=== PATIENT | male | born 1990 | race African-American/Black ===

== ENCOUNTER 2021-03-06 15:56 | Emergency (ER) | payer BC ==
[~2021-03-06] VITALS: Ht 185.4 cm; Wt 141.0 kg
[2021-03-06] MEDS ORDERED: TORADOL PO (19:47)
[2021-03-06] MEDS ORDERED: FLEXERIL5 M1 PO (19:47)
[2021-03-06 19:54] VITALS: BP 138/72
== END 2021-03-06 20:05 | disposition home or self-care (01) | DRG 552 ==
LOC: ED 15:56
DX: M54.5 Low back pain (principal); M54.6 Pain in thoracic spine; X50.3XXA Overexertion from repetitive movements, initial encounter; Y93.89 Activity, other specified; Y92.89 Other specified places as the place of occurrence of the external cause; Y99.0 Civilian activity done for income or pay

== ENCOUNTER 2023-09-02 08:17 | Inpatient (IN) | payer BC ==
[2023-09-02] VITALS (45 sets, daily range): BP systolic 117–213; BP diastolic 66–135
[~2023-09-02] VITALS: Ht 185.4 cm; Wt 158.0 kg
[~2023-09-02 08:17] MED LIST: FLEXERIL5 M1 PO; TORADOL PO
--- NOTE | 2023-09-02 09:29 | NUR ---
PATIENT ARRIVED TO ER VIA POV. PATIENT WHEELED TO ROOM BY ER STAFF. PATIENT AWAKE, ALERT AND STABLE. NO DISTRESS NOTED. PHYSICIAN NOTIFIED.
--- NOTE | 2023-09-02 10:00 | NUR ---
PT SBAR REPORT RECEIVED FROM WILMER GOYAL;PT CARE ASSUMED AT THIS TIME
[2023-09-02 10:26] LABS: BASO% 0.1 % (0-3); HEMATOCRIT 49.7 % (39.0-50.0); HEMOGLOBIN 16.1 g/dl (14.0-18.0); IMMATURE GRANULOCYTES 0.4 % (0.0-5.0); MEAN CELL VOLUME 93.8 fL CALC (80.0-100.0); MEAN CORPUSCULAR HGB 30.4 pG CALC (26.0-32.0); MEAN CORPUSCULAR HGB CONC 32.4 g/dL CAL (32.0-36.0); MONO% 3.2 % (2-13); NEUT# 16.09 thou/uL (1.82-7.42); NEUT% 92.3 % (42-76); RED BLOOD COUNT 5.3 mill/uL (4.70-6.10); RED CELL DISTRI WIDTH 13.6 % (11.5-15.5)
[2023-09-02 10:31] LABS: ALKALINE PHOSPHATASE 158 u/l (38-126); BUN 21 mg/dL (9-20); BUN/CREATININE RATIO 15 (12-20 (CALC)); CHLORIDE 98 mmol/l (95-108); CREATININE 1.4 mg/dL (0.7-1.3); GFR FOR AFR.AMER. > 60 ML/MIN (>=60 (CALC)); GFR OTHER RACES 58 ML/MIN (>=60 (CALC)); SGOT/AST 38 u/l (17-59)
[2023-09-02 10:42] LABS: POTASSIUM 5.4 mmol/l (3.5-5.1); SODIUM 135 mmol/l (137-146)
[2023-09-02 10:43] LABS: ALBUMIN 5.3 g/dL (3.2-5.0); ANION GAP 36 (6-22 (CALC)); BILIRUBIN, TOTAL 0.7 mg/dL (0.2-1.3); CARBON DIOXIDE 6 mmol/l (22-30); TOTAL PROTEIN 9.1 g/dL (6.3-8.2)
[2023-09-02 10:54] LABS: INTERNATIONAL NORMALIZED RATIO 1.2 RATIO (0.7-1.3)
--- NOTE | 2023-09-02 12:22 | NUR ---
Reassessment of patient completed. No distress noted.
[2023-09-02 13:54] LABS: URINE BLOOD DIPSTICK Moderate (NEGATIVE); URINE GLUCOSE - DIPSTICK 500 mg/dL (NEGATIVE); URINE KETONE >=160 mg/dL (NEGATIVE); URINE LEUK ESTERASE Negative (NEGATIVE); URINE NITRITE - DIPSTICK Negative (Negative); URINE PROTEIN - DIPSTICK 100 mg/dL (NEG-TRACE); URINE UROBILINOGEN - DIPSTICK 0.2 E.U./dL (0.2)
[2023-09-02 13:55] LABS: URINE COLOR Yellow
--- NOTE | 2023-09-02 14:17 | NUR ---
PATIENT OFFERED EXTRA ICE AND WATER PER REQUEST.
[2023-09-02 14:19] LABS: URINE RBC 0-2 RBC/hpf (0-5); URINE SQUAMOUS EPITHELIAL CELL RARE EPI/hpf (0-FEW); URINE WBC 0-2 WBC/hpf (0-5)
--- NOTE | 2023-09-02 16:35 | NUR ---
PATIENT AWAITING ICU ROOM 4
[2023-09-02 18:17] LABS: ANION GAP 26 (6-22 (CALC)); BUN 19 mg/dL (9-20); BUN/CREATININE RATIO 22 (12-20 (CALC)); CHLORIDE 107 mmol/l (95-108); CREATININE 0.9 mg/dL (0.7-1.3); GFR FOR AFR.AMER. > 60 ML/MIN (>=60 (CALC)); GFR OTHER RACES > 60 ML/MIN (>=60 (CALC)); POTASSIUM 4.5 mmol/l (3.5-5.1); SODIUM 135 mmol/l (137-146)
[2023-09-02 18:32] LABS: CARBON DIOXIDE 7 mmol/l (22-30)
--- NOTE | 2023-09-02 19:34 | NUR ---
REPORT CALLED TO ICU
--- NOTE | 2023-09-02 19:58 | NUR ---
PATIENT TAKEN TO ICU
--- NOTE | 2023-09-02 20:00 | NUR ---
PATIENT ARRIVED ON UNIT VIA STRETCHER. HE AMBULATED TO BED WITH STEADY GAIT. NO ACUTE DISTRESS NOTED. HE HAS A BOIL IN THE COCCYX AREA THAT IS DRAINING PURULENT FLUID. ASSESSMENT COMPLETED. PATIENT IS A/O X3. LUNGS CTA. BOWEL SOUNDS ACTIVE IN ALL FOUT QUADS. PATIENT ARRIVED ON UNIT DUE TO DKA WITH INSULIN DRIP RUNNING AT 4 AT THIS TIME. HE DENIES ANY PAIN OR DISCOMFORT. BICARB DRIP STARETED. FLUIDS RUNNING PER DKA PROTOCOL.
[2023-09-03] VITALS (24 sets, daily range): BP systolic 92–185; BP diastolic 48–91
--- NOTE | 2023-09-03 02:00 | NUR ---
PATIENT REMAINS ON INSULIN DRIP, NO ACUTE DISTRESS NOTED. DRIP TITRATED PER PROTOCOL.
--- NOTE | 2023-09-03 02:23 | NUR ---
AWAITING 0000 LAB RESULTS.
[2023-09-03 02:35] LABS: ANION GAP 23 (6-22 (CALC)); BUN 22 mg/dL (9-20); BUN/CREATININE RATIO 23 (12-20 (CALC)); CHLORIDE 108 mmol/l (95-108); GFR FOR AFR.AMER. > 60 ML/MIN (>=60 (CALC)); GFR OTHER RACES > 60 ML/MIN (>=60 (CALC)); POTASSIUM 4.7 mmol/l (3.5-5.1); SODIUM 132 mmol/l (137-146)
[2023-09-03 02:36] LABS: CARBON DIOXIDE 6 mmol/l (22-30)
--- NOTE | 2023-09-03 04:00 | NUR ---
PATIENT SLEEPING, HOURLY ACCUCHECKS COMPLETED. DRIP TITRATED PER PROTOCOL.
[2023-09-03 04:26] LABS: BASO% 0.1 % (0-3); IMMATURE GRANULOCYTES 0.4 % (0.0-5.0); LYMPH% 14.8 % (15-41); MEAN CELL VOLUME 92.4 fL CALC (80.0-100.0); MEAN CORPUSCULAR HGB 30.2 pG CALC (26.0-32.0); MEAN CORPUSCULAR HGB CONC 32.6 g/dL CAL (32.0-36.0); MONO% 10.3 % (2-13); NEUT# 7.3 thou/uL (1.82-7.42); NEUT% 74.4 % (42-76); RED BLOOD COUNT 4.61 mill/uL (4.70-6.10)
[2023-09-03 04:37] LABS: HEMATOCRIT 42.6 % (39.0-50.0); HEMOGLOBIN 13.9 g/dl (14.0-18.0)
[2023-09-03 04:38] LABS: ANION GAP 19 (6-22 (CALC)); BUN 29 mg/dL (9-20); BUN/CREATININE RATIO 20 (12-20 (CALC)); CHLORIDE 106 mmol/l (95-108); CREATININE 1.5 mg/dL (0.7-1.3); GFR FOR AFR.AMER. > 60 ML/MIN (>=60 (CALC)); GFR OTHER RACES 54 ML/MIN (>=60 (CALC)); POTASSIUM 4.4 mmol/l (3.5-5.1); SODIUM 132 mmol/l (137-146)
[2023-09-03 04:39] LABS: ALKALINE PHOSPHATASE 109 u/l (38-126); BILIRUBIN, TOTAL 0.6 mg/dL (0.2-1.3); BUN 30 mg/dL (9-20); BUN/CREATININE RATIO 21 (12-20 (CALC)); CALCULATED LDLCHOLESTEROL 179 mg/dL (62-129 (CALC)); CHLORIDE 106 mmol/l (95-108); CHOLESTEROL HDL RATIO 5.2 (<4.4 (CALC)); CREATININE 1.4 mg/dL (0.7-1.3); GFR FOR AFR.AMER. > 60 ML/MIN (>=60 (CALC)); GFR OTHER RACES 58 ML/MIN (>=60 (CALC)); HDL CHOLESTEROL 50 mg/dL (39.0-59.0); MAGNESIUM 2.6 mg/dL (1.6-2.3); POTASSIUM 4.5 mmol/l (3.5-5.1); SGOT/AST 25 u/l (17-59); SODIUM 132 mmol/l (137-146); TOTAL TRIGLYCERIDES 157 mg/dl (0-149); VLDL CHOLESTROL 31 mg/dl (5-56 (CALC))
[2023-09-03 04:42] LABS: ALBUMIN 4.1 g/dL (3.2-5.0); ANION GAP 19 (6-22 (CALC)); CARBON DIOXIDE 11 mmol/l (22-30); CARBON DIOXIDE 12 mmol/l (22-30); TOTAL CHOLESTEROL 260 mg/dl (0-199); TOTAL PROTEIN 6.8 g/dL (6.3-8.2)
--- NOTE | 2023-09-03 07:00 | NUR ---
REPORT GIVEN TO ONCOMING NURSE.
--- NOTE | 2023-09-03 07:35 | NUR ---
pt resting in bed with eyes closed; no apparent distress noted; easily aroused; assessment completed at this time; pt alert and oriented; denies pain; no n/v noted; resp even and unlabored; lungs clear; skin color wnl; ra; hr reg; strong pulses; no edema noted; sr on monitor; abd soft distended with bs present; no bm noted per typewriter ribbon winder; no urine to inspect at this time; urinal at bedside; #20 to rac patent with ivf/ insulin gtt at 6units/hr; #20 to rh patent with bicarb gtt infusing without complication; no redness or edema noted at site; abscess noted to inner upper right buttock with purulent drainage; pt admits to "boil" being there for about a month, pt states he "bust" recently; plan of care/meds/hourly accuchecks explained; pt aware of npo status; call light within reach; will continue to monitor
--- NOTE | 2023-09-03 08:02 | NUR ---
pt resting with eyes closed; no apparent distress noted; insulin gtt infusing; will continue to monitor
--- NOTE | 2023-09-03 08:47 | NUR ---
Dr Salvador called this copywriter; update provided
--- NOTE | 2023-09-03 10:08 | NUR ---
awake in bed; offers no complaints; no apparent distress noted; iv intact; insulin gtt cont; Dr Treviño present at bedside to assess pt and discuss plan of care
--- NOTE | 2023-09-03 12:02 | NUR ---
resting in bed with eyes closed; easily aroused; offers no complaints; iv intact; no redness or edema noted at sites; sr on monitor; water provided; call light within reach; will continue to monitor
[2023-09-03 12:47] LABS: ANION GAP 17 (6-22 (CALC)); BUN 32 mg/dL (9-20); BUN/CREATININE RATIO 33 (12-20 (CALC)); CHLORIDE 104 mmol/l (95-108); GFR FOR AFR.AMER. > 60 ML/MIN (>=60 (CALC)); GFR OTHER RACES > 60 ML/MIN (>=60 (CALC)); SODIUM 131 mmol/l (137-146)
[2023-09-03 12:50] LABS: CARBON DIOXIDE 14 mmol/l (22-30)
--- NOTE | 2023-09-03 14:08 | NUR ---
pt awake in bed; offers no complaints; iv intact and patent; insulin gtt infusing; sr on monitor; will continue to monitor
--- NOTE | 2023-09-03 16:19 | NUR ---
awake in bed; no apparent distress noted; pt offers no complaints; iv intact and patent; insulin gtt per protocol; water provided; sr on monitor; call light within reach; will continue to monitor
--- NOTE | 2023-09-03 18:11 | NUR ---
pt awake in bed; no apparent distress noted; offers no complaints; declined neb tx; iv intact and patent; no redness or edema noted at site; call light within reach
[2023-09-03 18:27] LABS: ANION GAP 16 (6-22 (CALC)); BUN 27 mg/dL (9-20); BUN/CREATININE RATIO 33 (12-20 (CALC)); CHLORIDE 104 mmol/l (95-108); CREATININE 0.8 mg/dL (0.7-1.3); GFR FOR AFR.AMER. > 60 ML/MIN (>=60 (CALC)); GFR OTHER RACES > 60 ML/MIN (>=60 (CALC)); POTASSIUM 3.6 mmol/l (3.5-5.1); SODIUM 134 mmol/l (137-146)
[2023-09-03 18:30] LABS: CARBON DIOXIDE 18 mmol/l (22-30)
--- NOTE | 2023-09-03 19:00 | NUR ---
HAND OFF REPRT RECEIVED FROM JOLLY
--- NOTE | 2023-09-03 20:00 | NUR ---
PATIENT AWAKE AND ALERT, RESPIRATIONS EVEN AND UNLAORED ON ROOM AIR, NO C/O PAIN OR DISCOMFORT, NO S/S OF DISTRESS NOTED, INSULIN DRIP AND HOURLY ACCUCHEKS CONTINUE
--- NOTE | 2023-09-03 22:00 | NUR ---
PATIENT RESTING QUIETLY IN BED WATCHING TV, AWAKE AND ALERT, RESPIRATIONS EVEN AND UNLABORED, NO C/O PAIN OR DISCOMFORT, NO S/S OF DISTRESS NOTED, SPOKE WITH DR JETER TO CONFIRM IV FLUID ORDERS, LIGHTS OFF FOR COMFORT.
[2023-09-04] VITALS (24 sets, daily range): BP systolic 94–174; BP diastolic 46–132
--- NOTE | 2023-09-04 00:19 | NUR ---
LAB AT BEDSIDE FOR SCHEDULED CMP
[2023-09-04 00:52] LABS: ALBUMIN 3.9 g/dL (3.2-5.0); ALKALINE PHOSPHATASE 111 u/l (38-126); ANION GAP 16 (6-22 (CALC)); BILIRUBIN, TOTAL 0.7 mg/dL (0.2-1.3); BUN 20 mg/dL (9-20); BUN/CREATININE RATIO 30 (12-20 (CALC)); CARBON DIOXIDE 18 mmol/l (22-30); CHLORIDE 103 mmol/l (95-108); CREATININE 0.7 mg/dL (0.7-1.3); GFR FOR AFR.AMER. > 60 ML/MIN (>=60 (CALC)); GFR OTHER RACES > 60 ML/MIN (>=60 (CALC)); POTASSIUM 3.3 mmol/l (3.5-5.1); SGOT/AST 27 u/l (17-59); SODIUM 134 mmol/l (137-146); TOTAL PROTEIN 6.5 g/dL (6.3-8.2)
--- NOTE | 2023-09-04 04:00 | NUR ---
PATIENT RESTING QUIETLY WITH EYES CLOSED, RESPIRATIONS EVEN AND UNLABORED ON ROOM AIR.
--- NOTE | 2023-09-04 05:52 | NUR ---
LAB AT BEDSIDE FOR AM DRAW
--- NOTE | 2023-09-04 06:13 | NUR ---
LAB REPORTS SAMPLE DRAWN WAS HEMOLYZED, THEY WILL REDRAW SOON THEY CAN
--- NOTE | 2023-09-04 07:04 | NUR ---
pt awake in bed; no apparent distress noted; pt offers no complaints; assessment completed at this time; pt alert and oriented; denies pain; no n/v noted; resp even and unlabored; lungs clear; skin color wnl; ra; hr reg; strong pulses; no edema noted; sr on monitor; abd soft/ distended with bs present; pt denies bm x1 week; states last bm Wednesday; pt aware today is Wednesday; no urine to inspect at this time; urinal at bedside; #20 to rac patent; #20 to rh patent; ivf/ insulin gtt infusing as per orders/protocol; plan of care/ meds/ hourly glucose checks explained; call light within reach; will continue to monitor
--- NOTE | 2023-09-04 08:10 | NUR ---
awake in bed; offers no complaints; sr on monitor; no distress noted; call light within reach; will continue to monitor
[2023-09-04 08:43] LABS: BUN 16 mg/dL (9-20); BUN/CREATININE RATIO 26 (12-20 (CALC)); CHLORIDE 104 mmol/l (95-108); CREATININE 0.6 mg/dL (0.7-1.3); GFR FOR AFR.AMER. > 60 ML/MIN (>=60 (CALC)); GFR OTHER RACES > 60 ML/MIN (>=60 (CALC)); POTASSIUM 3.1 mmol/l (3.5-5.1); SODIUM 133 mmol/l (137-146)
[2023-09-04 08:44] LABS: ANION GAP 10 (6-22 (CALC)); CARBON DIOXIDE 22 mmol/l (22-30)
[2023-09-04 08:46] LABS: ALBUMIN 3.7 g/dL (3.2-5.0); BUN 16 mg/dL (9-20); CARBON DIOXIDE 20 mmol/l (22-30); CHLORIDE 103 mmol/l (95-108); CREATININE 0.6 mg/dL (0.7-1.3); GFR FOR AFR.AMER. > 60 ML/MIN (>=60 (CALC)); GFR OTHER RACES > 60 ML/MIN (>=60 (CALC)); POTASSIUM 3.3 mmol/l (3.5-5.1); SODIUM 134 mmol/l (137-146)
--- NOTE | 2023-09-04 08:50 | NUR ---
Dr Treviño present at bedside to assess pt and discuss plan of care
[2023-09-04 09:28] LABS: BASO% 0.3 % (0-3); EOS% 0.6 % (0-8); HEMATOCRIT 39.3 % (39.0-50.0); HEMOGLOBIN 13.4 g/dl (14.0-18.0); IMMATURE GRANULOCYTES 0.2 % (0.0-5.0); LYMPH% 24.4 % (15-41); MEAN CELL VOLUME 90.3 fL CALC (80.0-100.0); MEAN CORPUSCULAR HGB 30.8 pG CALC (26.0-32.0); MEAN CORPUSCULAR HGB CONC 34.1 g/dL CAL (32.0-36.0); MONO% 11.2 % (2-13); NEUT# 4.19 thou/uL (1.82-7.42); NEUT% 63.3 % (42-76); RED BLOOD COUNT 4.35 mill/uL (4.70-6.10); RED CELL DISTRI WIDTH 13.5 % (11.5-15.5)
--- NOTE | 2023-09-04 10:13 | NUR ---
awake in recliner; offers no complaints; iv intact; insulin gtt continued; sr on monitor; call light within reach; will continue to monitor
--- NOTE | 2023-09-04 12:07 | NUR ---
pt awake in bed; pt has consumed 100% of meal; no n/v noted; iv intact and patent; insulin gtt continues; sr on monitor; call light within reach; will continue to monitor
[2023-09-04 12:40] LABS: ANION GAP 11 (6-22 (CALC)); BUN 15 mg/dL (9-20); BUN/CREATININE RATIO 24 (12-20 (CALC)); CARBON DIOXIDE 24 mmol/l (22-30); CHLORIDE 103 mmol/l (95-108); CREATININE 0.6 mg/dL (0.7-1.3); GFR FOR AFR.AMER. > 60 ML/MIN (>=60 (CALC)); GFR OTHER RACES > 60 ML/MIN (>=60 (CALC)); POTASSIUM 3.2 mmol/l (3.5-5.1); SODIUM 135 mmol/l (137-146)
--- NOTE | 2023-09-04 14:00 | NUR ---
awake in bed; offers no complainta; poc explained, weaning of insulin gtt; sr on monitor; call light within reach; will continue to monitor
--- NOTE | 2023-09-04 16:06 | NUR ---
pt awake in bed conversing on cell phone; s/o at bedside; pt offers no complaints; iv's intact and saline locked; call light within reach; will continue to monitor
--- NOTE | 2023-09-04 17:10 | NUR ---
underwriter present at bedside; pt educated on glucose checks and insulin administration; pt able to properly demonstrate self accucheck and self insulin injection to the abd; s/sx of hypoglycemia explained; s/o at bedside for education as well
[2023-09-04 18:03] LABS: BUN 13 mg/dL (9-20); BUN/CREATININE RATIO 20 (12-20 (CALC)); CHLORIDE 100 mmol/l (95-108); CREATININE 0.7 mg/dL (0.7-1.3); GFR FOR AFR.AMER. > 60 ML/MIN (>=60 (CALC)); GFR OTHER RACES > 60 ML/MIN (>=60 (CALC)); POTASSIUM 3.3 mmol/l (3.5-5.1); SODIUM 131 mmol/l (137-146)
[2023-09-04 18:11] LABS: ANION GAP 15 (6-22 (CALC)); CARBON DIOXIDE 19 mmol/l (22-30)
--- NOTE | 2023-09-04 18:26 | NUR ---
pt awake in bed; no apparent distress noted; pt offers no complaints; iv's intact and saline locked; sr on monitor; call light within reach
--- NOTE | 2023-09-04 19:00 | NUR ---
HAND OFF REPORT RECEVIED FROM JOLLY
--- NOTE | 2023-09-04 20:00 | NUR ---
PATIENT AWAKE AND ALERT, RESPIRATIONS EVEN AND UNLABORED ON ROOM AIR, NO C/O PAIN OR DISCOMFORT, NO S/S OF DISTRESS NOTED, AMBULATORY WITHOUT ASSISTANCE.
--- NOTE | 2023-09-04 21:56 | NUR ---
PATIENT RESTING QUIETLY IN BED AT THIS TIME, RESPIRATIONS EVEN AND UNLABORED ON ROOM AIR, LIGHTS OUT FOR COMFORT.
[2023-09-05] VITALS (12 sets, daily range): BP systolic 119–177; BP diastolic 55–99
--- NOTE | 2023-09-05 04:00 | NUR ---
PATIENT RESTING QUIETLY WITH EYES CLOSED, RESPIRATIONS EVEN AND UNLABORED.
[2023-09-05 04:23] LABS: BASO% 0.3 % (0-3); EOS% 0.7 % (0-8); HEMATOCRIT 39.9 % (39.0-50.0); HEMOGLOBIN 13.2 g/dl (14.0-18.0); IMMATURE GRANULOCYTES 0.3 % (0.0-5.0); LYMPH% 41.6 % (15-41); MEAN CELL VOLUME 91.1 fL CALC (80.0-100.0); MEAN CORPUSCULAR HGB 30.1 pG CALC (26.0-32.0); MEAN CORPUSCULAR HGB CONC 33.1 g/dL CAL (32.0-36.0); MONO% 12.4 % (2-13); NEUT# 2.62 thou/uL (1.82-7.42); NEUT% 44.7 % (42-76); RED BLOOD COUNT 4.38 mill/uL (4.70-6.10); RED CELL DISTRI WIDTH 13.5 % (11.5-15.5)
[2023-09-05 04:42] LABS: ALBUMIN 3.4 g/dL (3.2-5.0); ALKALINE PHOSPHATASE 90 u/l (38-126); BILIRUBIN, TOTAL 0.7 mg/dL (0.2-1.3); BUN 12 mg/dL (9-20); BUN/CREATININE RATIO 19 (12-20 (CALC)); CHLORIDE 103 mmol/l (95-108); CREATININE 0.6 mg/dL (0.7-1.3); GFR FOR AFR.AMER. > 60 ML/MIN (>=60 (CALC)); GFR OTHER RACES > 60 ML/MIN (>=60 (CALC)); MAGNESIUM 2.2 mg/dL (1.6-2.3); POTASSIUM 3.2 mmol/l (3.5-5.1); SGOT/AST 24 u/l (17-59); SODIUM 135 mmol/l (137-146); TOTAL PROTEIN 5.8 g/dL (6.3-8.2)
[2023-09-05 04:45] LABS: ANION GAP 10 (6-22 (CALC)); CARBON DIOXIDE 25 mmol/l (22-30)
--- NOTE | 2023-09-05 07:15 | NUR ---
pt awake in bed; no apparent distress noted; pt offers no complaints; assessment completed at this time; pt alert and oriented; denies pain; no n/v noted; resp even and unlabored; lungs clear; skin color wnl; ra; hr reg; strong pulses; no edema noted; sr on monitor; abd soft/ distended with bs present; no bm noted per sql report writer; no urine to inspect at this time; urinal at bedside; #20 to rac and rh flushed and patent; no redness or edema noted at site; plan of care/ meds/ glucose checks explained; call light within reach; will continue to monitor
--- NOTE | 2023-09-05 07:15 | NUR ---
pt awake in bed; no apparent distress noted; pt offers no complaints; assessment completed at this time; pt alert and oriented; denies pain; no n/v note; pt denies dizziness or gait imbalance; resp even and unlabored; lungs clear; skin color wnl; ra; hr reg; strong pulses; no edema noted; sr on monitor; abd soft with bs present; no bm noted per health technical writer; no urine to inspect at this time; #20 flushed and patent to rac; no redness or edema noted at site; NIH 0; plan of care/ meds/ mri/ nih completed; call light within reach; will continue to monitor
--- NOTE | 2023-09-05 08:16 | NUR ---
awake in bed; offers no complaints; sr on monitor; call light within reach; will continue to monitor
--- NOTE | 2023-09-05 09:39 | NUR ---
Dr Treviño at bedside to assess pt and discuss plan of care
[2023-09-05] MEDS ORDERED: LOSARTAN POTAS100 MG PO (09:48)
[2023-09-05] MEDS ORDERED: METFORMIN500 M2 PO (09:48)
[2023-09-05] MEDS ORDERED: LEVEMIR100 UNIT SC (09:49)
--- NOTE | 2023-09-05 10:19 | NUR ---
pt awake in bed; offers no complaints; visitor at bedside; sr on monitor; call light within reach; will continue to monitor
--- NOTE | 2023-09-05 10:25 | NUR ---
Dr Salvador called; update provided; informed of pending discharge; no changes
[2023-09-05] MEDS ORDERED: LANCET MICRO XX (10:39)
[2023-09-05] MEDS ORDERED: INSULIN SY SC (10:41)
[2023-09-05] MEDS ORDERED: [UNRECOGNIZED DRUG - SUPPLY] SC (10:42)
[2023-09-05] MEDS ORDERED: CONTOUR NEXT TEST ST VI (10:44)
[2023-09-05] MEDS ORDERED: ACCU-CHEK AVIVA PLU1 SC (10:46)
--- NOTE | 2023-09-05 10:56 | NUR ---
pt able to properly demonstrate finger stick/ glucose check; pt able to properly demonstrate drawing up insulin and self injection; pt educated on s/sx of hypo/hyperglycemia; pt compliant with teachings; will continue to monitor
--- NOTE | 2023-09-05 12:05 | NUR ---
Discharge instructions given. Patient verbalizes understanding of same. Discharged in stable condition via Ambulatory to Home with significant other. All belongings sent with pt.
== END 2023-09-05 12:15 | disposition home or self-care (01) | DRG 638 ==
LOC: ED 08:17 → ICU 13:16
PROVIDERS: Family Medicine; Internal Medicine Nephrology; ADMIT Student in an Organized Health Care Education/Training Program; ATTEND Student in an Organized Health Care Education/Training Program
DX: E11.10 Type 2 diabetes mellitus with ketoacidosis without coma (principal); E87.1 Hypo-osmolality and hyponatremia; N17.9 Acute kidney failure, unspecified; J10.1 Influenza due to other identified influenza virus with other respiratory manifestations; Z68.42 Body mass index [BMI] 45.0-49.9, adult; E66.9 Obesity, unspecified; I10 Essential (primary) hypertension; E86.0 Dehydration; E86.9 Volume depletion, unspecified; L05.91 Pilonidal cyst without abscess; E87.6 Hypokalemia; Z83.3 Family history of diabetes mellitus; Z20.822 Contact with and (suspected) exposure to COVID-19
CPT/HCPCS: J0690; J1650; Q9967